=== PATIENT | male | born 1970 | race Caucasian/White ===

== ENCOUNTER 2016-10-25 09:42 | Emergency (ER) | payer MEDICARE, MEDICAID ==
[2016-10-25 10:44] VITALS: BP 128/80
--- NOTE | 2016-10-25 12:38 | UC ---
Hand/Wrist HPI - HPI Summary HPI Summary: The patient comes in today for: 1. Left ring finger pain? The patient is nonverbal half-way patient. Onset: Today Palliative/provocative: Nothing makes it better or worse. Quality: Unable to determine Region: Left ring finger. Severity: unknown. Time: Constant. Associated symptoms: Fevers: None. * - History Of Current Complaint Chief Complaint: UCUpperExtremity Stated Complaint: LEFT RING FINGER INJURY Time Seen by Provider: 10/25/16 12:25 Hx Obtained From: Family/Fingernail Former Hx From Patient Unobtainable Due To: Altered Mental Status - [facility] client. ?: No - Allergies/Home Medications Allergies/Adverse Reactions: Allergies Allergy/AdvReac Type Severity Reaction Status Date / Time BAND-AID Allergy Blisters Uncoded 10/25/16 10:44 TAPE Allergy Blisters Uncoded 10/25/16 10:44 Home Medications: Home Medications Aspirin EC Low Dose* [Ecotrin EC Low Dose*] 81 mg PO SEE INSTRUCTIONS 10/25/16 [ History Confirmed 10/25/16] Calcium Carbonate-Vitamin D [Calcium 600+D] 1 tab PO BID 10/25/16 [History Confirmed 10/25/16] Fiber [Fiber Formula] 2 cap PO DAILY 10/25/16 [History Confirmed 10/25/16] Lisinopril TAB* [Prinivil TAB*] 5 mg PO DAILY 10/25/16 [History Confirmed ] Mirtazapine TAB* [Remeron TAB*] 30 mg PO BEDTIME 10/25/16 [History Confirmed ] Multivitamins/Minerals TAB* [Thera M Plus TAB*] 1 tab PO DAILY 10/25/16 [ History Confirmed 10/25/16] Simvastatin [Zocor 40 MG (NF)] 40 mg PO QPM 10/25/16 [History Confirmed 10/25/16 ] busPIRone TAB* [Buspar TAB *] 15 mg PO BID 10/25/16 [History Confirmed 10/25/16] carBAMazepine ER TAB(*) [TEGretol Xr TAB(*)] 200 mg PO 1900 10/25/16 [History Confirmed 10/25/16] carBAMazepine ER TAB(*) [TEGretol Xr TAB(*)] 400 mg PO 0700,1900 10/25/16 [ History Confirmed 10/25/16] PMH/Surg Hx/FS Hx/Imm Hx Previously Healthy: No - Sigmoid resection for volvulus, 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 Endocrine History Of: Denies: Diabetes, Thyroid Disease, Hyperthyroidism, Hypothyroidism, Dyslipidemia Cardiovascular History Of: Reports: Hypertension Denies: Cardiac Disorders, Pacemaker/ICD, Myocardial Infarction, Congestive Heart Failure, Atrial Fibrillation, Deep Vein Thrombosis, Bleeding Disorders Respiratory History Of: Denies: COPD, Asthma, Bronchitis, Pneumonia, Pulmonary Embolism GI/ History Of: Denies: Gastroesophageal Reflux, Ulcer, Gastrointestinal Bleed, Gall Bladder Disease, Kidney Stones, Diverticulitis, Renal Disease, Urosepsis Neurological History Of: Denies: TIA, CVA, Dementia, Seizures, Migraine Psychological History Of: Reports: Anxiety Denies: Depression, Bipolar Disorder, Schizophrenia, Post Traumatic Stress Disorder Cancer History Of: Denies: Lung Cancer, Colorectal Cancer, Breast Cancer, Prostate Cancer, Cervical Cancer Other History Of: Negative For: HIV, Hepatitis B, Hepatitis C, Anticoagulant Therapy - Daily aspirin. - Surgical History Surgical History: Yes Surgery Procedure, Year, and Place: graft right leg 1998 after ortho surgery. ortho surgery right leg 1998 - Family History Known Family History: Positive: None - He is a half-way patient and the driver manager has no info. - Social History Occupation: Unemployed Lives: Retirement Alcohol Use: None Substance Use Type: None Smoking Status (MU): Never Smoked Tobacco Review of Systems Constitutional: Negative Skin: Negative Eyes: Negative ENT: Negative Respiratory: Negative Cardiovascular: Negative Gastrointestinal: Negative Genitourinary: Negative All Other Systems Reviewed And Are Negative: Yes Physical Exam Triage Information Reviewed: Yes Appearance: Well-Appearing, No Pain Distress, Well-Nourished, Other: - Non- verbal, but he has good eye contact. Vital Signs: Initial Vital Signs Temp 97.1 F 10/25/16 10:40 Pulse 79 10/25/16 10:40 Resp 16 10/25/16 10:40 BP 128/80 10/25/16 10:40 Pulse Ox 100 10/25/16 10:40 Vital Signs Reviewed: Yes Eyes: Positive: Conjunctiva Clear. Negative: Discharge ENT: Positive: Hearing grossly normal. Negative: Pharyngeal erythema, Nasal congestion, Nasal drainage, TM bulging, TM dull, TM red, Tonsillar swelling, Tonsillar exudate Dental: Negative: Gross Decay/Caries @, Dental Fracture @ Neck: Positive: Supple, Nontender, No Lymphadenopathy. Negative: Nuchal Rigidity Respiratory: Positive: Chest non-tender, Lungs clear, No respiratory distress, No accessory muscle use. Negative: Crackles, Wheezing Cardiovascular: Positive: RRR, No Murmur Abdomen Description: Positive: Nontender, No Organomegaly, Soft, Distended, Guarding Musculoskeletal: Positive: Strength Intact, ROM Intact, No Edema - NO edema of the skin, but the middle phalanx does appear thicker., Other: - The left ring finger has some redness and is thicker than the right ring finger, but he does not act like he is in pain with manipulation. Neurological: Positive: Alert, Muscle Tone Normal Psychological: Positive: Normal Response To Family, Age Appropriate Behavior, Consolable Skin: Negative: rashes, breakdown Diagnostics - Laboratory Diagnostic Studies Completed/Ordered: IMPRESSION: INTRA-ARTICULAR FRACTURE MIDDLE PHALANX OF THE FOURTH DIGIT. - Radiology No standard instances Xray Interpretation: Positive (See Comments) Radiology Interpretation Completed By: Radiologist Hand/Wrist Course/Dx - Differential Dx/Diagnosis Differential Diagnosis/HQI/PQRI: Cellulitis, Contusion Provider Diagnoses: Intra-articular fracture of the distal aspect of the left ring middle phalanx. Discharge - Discharge Plan Condition: Stable Disposition: HOME Patient Education Materials: Finger Fracture (ED) Referrals: Rich Woodward MD [Primary Care Provider] - Angelica Weiner MD [Medical Doctor] - Bipin Winston MD [Medical Doctor] - Additional Instructions: Please contact DR. Weiner's or Dr. Foster's office for a follow up appointment. Use [id number] pain medication as needed.
--- NOTE | 2016-10-25 13:16 | RAD ---
INDICATION: Left hand swelling COMPARISON: None TECHNIQUE: AP, lateral, and oblique views were obtained. FINDINGS: There is a mildly displaced intra-articular fracture of the distal aspect of the middle phalanx of the left fourth digit. No other fractures are evident. There is mild osteopenia. There is mild soft tissue swelling about the fracture site. IMPRESSION: INTRA-ARTICULAR FRACTURE MIDDLE PHALANX OF THE FOURTH DIGIT.
== END 2016-10-25 13:39 | disposition home or self-care (01) ==
LOC: UCCORT 09:42
DX: S62.633A Displaced fracture of distal phalanx of left middle finger, initial encounter for closed fracture (principal); X58.XXXA Exposure to other specified factors, initial encounter; Y93.9 Activity, unspecified; Y92.9 Unspecified place or not applicable
CPT/HCPCS: 73140; 99213; G0463

== ENCOUNTER 2019-01-20 12:22 | Emergency (ER) | payer MEDICARE, MEDICAID ==
[2019-01-20 13:33] VITALS: BP 133/94
--- NOTE | 2019-01-20 13:44 | UC ---
General HPI - HPI Summary HPI Summary: increasing redness and drainage from L eye. onset yesterday but worse today. no hx injury, uri or fever. - History of Current Complaint Chief Complaint: UCEye Stated Complaint: LEFT EYE CONCERN Time Seen by Provider: 01/20/19 13:36 Hx Obtained From: Family/Water Quality Control Engineer Onset/Duration: Gradual Onset Timing: Constant Pain Intensity: 0 Associated Signs & Symptoms: Negative: Fever - Allergy/Home Medications Allergies/Adverse Reactions: Allergies Allergy/AdvReac Type Severity Reaction Status Date / Time Adhesive Tape Allergy Blisters Verified 01/20/19 13:33 Home Medications: Home Medications Aspirin EC TAB* [Ecotrin EC Low Dose 81 MG*] 81 mg PO DAILY 01/20/19 [History Confirmed 01/20/19] Calcium Carbonate/Vitamin D3 [Calcium Carbonate/Vitamin] 1 tab PO DAILY [History Confirmed 01/20/19] Calcium Polycarbophil TAB* [Fibercon TAB*] 1,250 mg PO DAILY 01/20/19 [History Confirmed 01/20/19] Carbamazepine [Carbamazepine ER] [place] [address]/20/19 [History Confirmed ] Ketoconazole 1 applic TOPICAL EVERY OTHER DAY 01/20/19 [History Confirmed ] Lisinopril TAB* [Prinivil TAB*] 5 mg PO DAILY 01/20/19 [History Confirmed ] Simvastatin (NF) [Zocor (NF)] 40 mg PO BEDTIME 01/20/19 [History Confirmed 01/20] Vitamin THERAPEUTIC TAB* [Theragran TAB*] 1 tab PO DAILY 01/20/19 [History Confirmed 01/20/19] busPIRone TAB* [Buspar *] 15 mg PO BID 01/20/19 [History Confirmed 01/20/19] carBAMazepine ER TAB(*) [TEGretol Xr TAB(*)] 200 mg PO 0730,189901/20/19 [ History Confirmed 01/20/19] PMH/Surg Hx/FS Hx/Imm Hx - Additional Past Medical History Additional PMH: cognitive limitation Endocrine History: Dyslipidemia Cardiovascular History: Hypertension Neurological History: Seizures Psychological History: Anxiety, Other - psychosis Other History Of: Negative For: HIV, Hepatitis B, Hepatitis C, Anticoagulant Therapy - Daily aspirin. - Surgical History Surgical History: Yes Surgery Procedure, Year, and Place: graft right leg 1998 after ortho surgery. ortho surgery right leg 1998 - Family History Known Family History: Positive: None - He is a shelter patient and the chiller tender has no info. - Social History Alcohol Use: None Substance Use Type: None Smoking Status (MU): Never Smoked Tobacco Review of Systems All Other Systems Reviewed And Are Negative: No Constitutional: Negative: Fever Skin: Negative: Rash Eyes: Positive: Drainage, Eye Redness ENT: Negative: Sore Throat, Ear Ache, Nasal Discharge Respiratory: Negative: Shortness Of Breath, Cough Neurological: Negative: Headache Physical Exam Triage Information Reviewed: Yes Appearance: Well-Appearing Vital Signs: Initial Vital Signs Temp 97.9 F 01/20/19 13:30 Pulse 78 01/20/19 13:30 Resp 18 01/20/19 13:30 BP 133/94 01/20/19 13:30 Pulse Ox 100 01/20/19 13:30 Vital Signs Reviewed: Yes Eyes: Positive: Other: - No auricular adenopathy. No periorbital edema or rash. L upper lid mildly pink where pt rubbing it. Conjuctiva on L is red and eye has yellow/green discharge. R eye is clear. PERRL, EOMI. Pt refusing to allow lid eversion. ENT: Positive: Pharynx normal, TMs normal. Negative: Nasal drainage Neck: Positive: Supple Respiratory: Positive: Lungs clear Cardiovascular: Positive: RRR Neurological: Positive: Alert Psychological: Positive: Age Appropriate Behavior - per his baseline Skin Exam: Normal Course/Dx - Diagnoses Provider Diagnosis: Conjunctivitis Discharge - Sign-Out/Discharge Documenting (check all that apply): Patient Departure All imaging exams completed and their final reports reviewed: No Studies - Discharge Plan Condition: Stable Disposition: HOME Prescriptions: Erythromycin OPTH OINT* [Erythromycin 0.5% OPTH OINT*] 1 applic LEFT EYE TID 7 Days #1 ophth.oint Patient Education Materials: Conjunctivitis (ED) Referrals: Rich Woodward MD [Primary Care Provider] - 5 Days - Billing Disposition and Condition Condition: STABLE Disposition: Home - Attestation Statements Provider Attestation: I was available for consult. This patient was seen by the DAYSI. The patient was not presented to, seen by, or examined by me. -Eduardo
== END 2019-01-20 13:57 | disposition home or self-care (01) ==
LOC: UCCORT 12:22
DX: H10.9 Unspecified conjunctivitis (principal); I10 Essential (primary) hypertension; E78.5 Hyperlipidemia, unspecified; R56.9 Unspecified convulsions; F41.9 Anxiety disorder, unspecified; Z79.82 Long term (current) use of aspirin; Z79.899 Other long term (current) drug therapy
CPT/HCPCS: 99212; G0463